=== PATIENT | female | born 1940 | race Caucasian/White ===

== ENCOUNTER 2021-09-26 06:50 | Emergency (ER) | payer MEDICARE ==
[~2021-09-26] VITALS: Ht 157.5 cm; Wt 68.6 kg
[~2021-09-26 06:50] MED LIST: ALPR-624 PO; ASPI-611 PO; ATEN25TA PO; DIAZ5TAB PO; HYDR-4353 PO; MECL-159 PO; ONDA4TAB6 PO; RED600CA2 PO
[2021-09-26 07:46] LABS: EOSINOPHILS # (AUTO) 0.1 X10'3 (0-0.9); EOSINOPHILS % (AUTO) 1.1 % (0-6); HEMOGLOBIN 12.3 g/dl (12.0-16.0); LYMPHOCYTES # (AUTO) 2.2 X10'3 (1.1-4.8); LYMPHOCYTES % (AUTO) 47.9 % (21-51); MEAN CORPUSCULAR HEMOGLOBIN 29.5 PG (27.0-31.0); MEAN CORPUSCULAR HGB CONC 33.4 g/dL (33.0-36.5); MEAN CORPUSCULAR VOLUME 88.5 FL (78-98); MEAN PLATELET VOLUME 10.4 FL (7.4-10.4); MONOCYTES # (AUTO) 0.4 X10'3 (0-0.9); MONOCYTES % (AUTO) 8.8 % (2-12); NEUTROPHILS # (AUTO) 1.9 X10'3 (1.8-7.7); NEUTROPHILS % (AUTO) 41.2 % (42-75); PLATELET COUNT 154 X10'3 (140-440); RED BLOOD COUNT 4.18 X10'6 (4.20-5.60); RED CELL DISTRIBUTION WIDTH 13.2 % (11.5-14.5); WHITE BLOOD COUNT 4.6 X10'3 (4.5-11.0)
[2021-09-26 08:01] LABS: ALANINE AMINOTRANSFERASE 30 U/L (12-78); ALBUMIN 3.8 G/DL (3.4-5.0); ALBUMIN/GLOBULIN RATIO 1.1 (1.1-1.5); ALKALINE PHOSPHATASE 90 IU/L (46-116); ANION GAP 11 (8-16); ASPARTATE AMINO TRANSFERASE 24 U/L (10-37); BILIRUBIN,TOTAL 0.5 MG/DL (0.1-1.0); BLOOD UREA NITROGEN 12 MG/DL (7-18); BUN/CREATININE RATIO 18.2 (6.6-38.0); CALCIUM 8.9 MG/DL (8.5-10.1); CHLORIDE 104 MMOL/L (99-107); CREATININE 0.66 MG/DL (0.40-0.90); GLUCOSE 134 MG/DL (70-104); POTASSIUM 4.1 MMOL/L (3.5-5.1); SODIUM 136 MMOL/L (135-145); TOTAL CARBON DIOXIDE 21.3 MMOL/L (24-32); TOTAL PROTEIN 7.4 G/DL (6.4-8.2); eGFR 86 ML/MIN
[2021-09-26 08:52] VITALS: BP 121/80
== END 2021-09-26 08:54 | disposition home or self-care (01) ==
LOC: ER 06:51
DX: R06.00 Dyspnea, unspecified (principal); R05.9 Cough, unspecified; R06.02 Shortness of breath; R68.2 Dry mouth, unspecified; F41.9 Anxiety disorder, unspecified; G47.00 Insomnia, unspecified; E78.00 Pure hypercholesterolemia, unspecified; I10 Essential (primary) hypertension; M79.7 Fibromyalgia; Z88.5 Allergy status to narcotic agent; Z79.82 Long term (current) use of aspirin; Z79.899 Other long term (current) drug therapy
CPT/HCPCS: 36415; 71045; 80053; 84145; 84484; 85025; 93005; 99285

== ENCOUNTER 2024-02-25 09:47 | Emergency (ER) | payer MEDICARE ==
[~2024-02-25] VITALS: Ht 157.5 cm; Wt 69.5 kg
[~2024-02-25 09:47] MED LIST changes: -MECL-159 PO; +MECL-302 PO
[2024-02-25] MEDS: cloNIDine 0.1 mg tablet PO ONE (10:25)
[2024-02-25] MEDS: normal saline 1000ml 1,000 ML IV ONE ×2 (10:41→12:30)
[2024-02-25 10:46] LABS: BASOPHILS # (AUTO) 0.1 X10'3 (0-0.2); BASOPHILS % (AUTO) 1.5 % (0-1); EOSINOPHILS # (AUTO) 0.1 X10'3 (0-0.9); EOSINOPHILS % (AUTO) 1.5 % (0-6); HEMATOCRIT 40.7 % (35.0-45.0); HEMOGLOBIN 13.3 g/dl (12.0-16.0); LYMPHOCYTES # (AUTO) 3.2 X10'3 (1.1-4.8); LYMPHOCYTES % (AUTO) 52.2 % (21-51); MEAN CORPUSCULAR HEMOGLOBIN 30.1 PG (27.0-31.0); MEAN CORPUSCULAR HGB CONC 32.7 g/dL (33.0-36.5); MEAN CORPUSCULAR VOLUME 91.9 FL (78-98); MEAN PLATELET VOLUME 10.6 FL (7.4-10.4); MONOCYTES # (AUTO) 0.5 X10'3 (0-0.9); MONOCYTES % (AUTO) 8.3 % (2-12); NEUTROPHILS # (AUTO) 2.3 X10'3 (1.8-7.7); NEUTROPHILS % (AUTO) 36.5 % (42-75); PLATELET COUNT 194 X10'3 (140-440); RED BLOOD COUNT 4.43 X10'6 (4.20-5.60); RED CELL DISTRIBUTION WIDTH 13.3 % (11.5-14.5); WHITE BLOOD COUNT 6.2 X10'3 (4.5-11.0)
[2024-02-25 10:57] LABS: ALANINE AMINOTRANSFERASE 30 U/L (12-78); ALBUMIN 3.8 G/DL (3.4-5.0); ALKALINE PHOSPHATASE 92 IU/L (46-116); ANION GAP 9 (8-16); ASPARTATE AMINO TRANSFERASE 23 U/L (10-37); BILIRUBIN,TOTAL 0.6 MG/DL (0.1-1.0); BLOOD UREA NITROGEN 8 MG/DL (7-18); BUN/CREATININE RATIO 9.9 (10.0-20.0); CALCIUM 9.2 MG/DL (8.5-10.1); CHLORIDE 99 MMOL/L (99-107); CREATININE 0.81 MG/DL (0.40-0.90); GLUCOSE 104 MG/DL (70-104); POTASSIUM 4.6 MMOL/L (3.5-5.1); SODIUM 133 MMOL/L (135-145); TOTAL CARBON DIOXIDE 24.9 MMOL/L (24-32); TOTAL PROTEIN 7.8 G/DL (6.4-8.2); eCRCL 40 ML/MIN; eGFR 67 ML/MIN
[2024-02-25 11:25] LABS: MAGNESIUM 2.2 MG/DL (1.5-2.4); PRO BRAIN NATRIURETIC PEPTIDE 468 PG/ML (0-450)
[2024-02-25 12:13] LABS: BILIRUBIN,URINE NEGATIVE (Neg); CLARITY,URINE SLIGHTLY CLOUDY (Clear); COLOR,URINE YELLOW (Yellow); GLUCOSE, URINE NEGATIVE (Neg); KETONES,URINE NEGATIVE (Neg); LEUKOCYTE ESTERASE ,URINE NEGATIVE (Neg); NITRITES, URINE NEGATIVE (Neg); OCCULT BLOOD,URINE NEGATIVE (Neg); PROTEIN,URINE NEGATIVE (Neg); UROBILINOGEN,URINE 0.2 E.U/dL (0.2-1.0)
[2024-02-25 12:21] LABS: UA COLLECTION TYPE NON-SPECIFIED
[2024-02-25 12:22] LABS: BACTERIA,URINE 2+ /HPF (Neg); MUCUS STRANDS FEW /LPF (Neg); RENAL CELLS, URINE FEW /HPF; SQUAMOUS EPITHELIAL CELL,UR FEW /LPF (FEW)
[2024-02-25 13:35] VITALS: BP 168/87; PULSE 62; RESP 16; TEMP 98.4; O2SAT 98
== END 2024-02-25 13:20 | disposition home or self-care (01) ==
LOC: ER 09:47
DX: I10 Essential (primary) hypertension (principal); R42 Dizziness and giddiness; E78.00 Pure hypercholesterolemia, unspecified; F41.9 Anxiety disorder, unspecified; Z88.5 Allergy status to narcotic agent; Z88.4 Allergy status to anesthetic agent; Z79.899 Other long term (current) drug therapy; Z79.82 Long term (current) use of aspirin
CPT/HCPCS: 36415; 80053; 81001; 83735; 83880; 84484; 85025; 87077; 87088; 87186; 93005; 96360; 96361; 99284; J7030

== ENCOUNTER 2024-07-16 11:02 | Emergency (ER) | payer MEDICARE ==
[~2024-07-16] VITALS: Ht 157.5 cm; Wt 68.7 kg
[~2024-07-16 11:02] MED LIST changes: -ATEN25TA PO; +ATOR20TA66 PO; -DIAZ5TAB PO; -HYDR-4353 PO; -MECL-302 PO; +METO25TA6 PO; -ONDA4TAB6 PO; -RED600CA2 PO
[2024-07-16 11:32] VITALS: BP 190/82; PULSE 70; RESP 18; TEMP 98; O2SAT 96
== END 2024-07-16 14:41 | disposition left against medical advice (07) ==
LOC: ER 11:03
DX: R05.9 Cough, unspecified (principal); Z88.5 Allergy status to narcotic agent; Z88.2 Allergy status to sulfonamides; Z53.21 Procedure and treatment not carried out due to patient leaving prior to being seen by health care provider

== ENCOUNTER 2024-07-24 08:13 | Emergency (ER) | payer MEDICARE ==
[~2024-07-24] VITALS: Ht 157.5 cm; Wt 68.2 kg
[2024-07-24] MEDS ORDERED: PROM118S5 PO (09:34)
[2024-07-24] MEDS ORDERED: AZIT250T83 PO (09:34)
[2024-07-24 09:48] VITALS: BP 118/70; PULSE 88; RESP 16; TEMP 98.9; O2SAT 98
== END 2024-07-24 09:50 | disposition home or self-care (01) ==
LOC: ER 08:14
DX: J06.9 Acute upper respiratory infection, unspecified (principal); M79.7 Fibromyalgia; E78.00 Pure hypercholesterolemia, unspecified; I10 Essential (primary) hypertension; F41.9 Anxiety disorder, unspecified; Z88.5 Allergy status to narcotic agent; Z88.2 Allergy status to sulfonamides; Z79.82 Long term (current) use of aspirin
CPT/HCPCS: 71045; 99283

== ENCOUNTER 2024-11-23 13:12 | Outpatient (CLI) | payer MEDICARE ==
--- NOTE | 2024-11-23 14:37 | RADIOLOGY REPORT ---
EXAM: DI HIP UNILATERAL 2 VIEWS CLINICAL INDICATION: LEFT HIP PAIN TECHNIQUE: DI HIP UNILATERAL 2 VIEWS Comparison: None FINDINGS/IMPRESSION: There is no evidence of acute fracture or dislocation. Moderate bilateral hip osteoarthritis The alignment is anatomical. There is no radiopaque foreign body.
== END 2024-11-23 23:59 | disposition home or self-care (01) ==
LOC: RAD 13:12
PROVIDERS: ATTEND Family Medicine
DX: M16.0 Bilateral primary osteoarthritis of hip (principal); M25.552 Pain in left hip
CPT/HCPCS: 73502

== ENCOUNTER 2025-04-08 12:08 | Emergency (ER) | payer MEDICARE ==
[~2025-04-08] VITALS: Ht 157.5 cm; Wt 66.8 kg
[2025-04-08 12:45] LABS: MEAN PLATELET VOLUME 9.3 FL (7.4-10.4); RED CELL DISTRIBUTION WIDTH 13.0 % (11.5-14.5)
[2025-04-08 12:59] LABS: CREATININE 0.85 MG/DL (0.40-0.90); TOTAL CARBON DIOXIDE 26.8 MMOL/L (24-32); eCRCL 38 ML/MIN; eGFR 63 ML/MIN
--- NOTE | 2025-04-08 15:06 | Physician Documentation ---
History of Present Illness Chief Complaint: Abdominal Pain w/vomiting Stated Complaint: DIARRHEA Time Seen by MD: 14:46 OK to notify your PCP?: Yes Primary Medical Doctor: DR. SOLANO Source: patient, family Mode of Arrival: POV Exam Limitations: no limitations HPI 84-year-old female with chief complaint abdominal pain with diarrhea that started three days ago. She states the symptoms came on suddenly with generalized abdominal pain about an hour after eating some fries. She states shortly after the abdominal pain started, about an hour later, she started experiencing diarrhea. She reports the diarrhea is bloody with bright red blood. Today she has only had one episode of diarrhea but yesterday she reports multiple episodes. She has also had nausea over the past three days and vomiting but has not vomited over the past 24 hours. She has never had anything like this before. Abdominal pain is described as cramping in character. Patient is not on blood thinners. History of oophorectomy with partial hysterectomy no other abdominal surgeries. She does report that her symptoms are slightly better today than they were over the preceding two days but the reason she came to the ER today is because this is when her daughter was able to come from [place] to bring her to the ER. No fever, chills, urinary symptoms, chest pain or shortness of breath. Medication Reconciliation Allergies: Coded Allergies: morphine (Unverified Allergy, Severe, 07/24/24) Sulfa (Sulfonamide Antibiotics) (Verified Allergy, Unknown, RASH, 07/24/24) lidocaine (Unverified Adverse Reaction, Mild, shakiness, 07/24/24) Scheduled Alprazolam* (Xanax*), 0.5 TAB PO HS, (Reported) Aspirin (Aspir 81), 1 TAB PO DAILY, (Reported) Atorvastatin Calcium (Atorvastatin Calcium), 1 TAB PO DAILY, (Reported) Metoprolol Tartrate (Metoprolol Tartrate), 1 TAB PO BID, (Reported) Metronidazole* (Flagyl*), 1 TAB PO Q8H Scheduled PRN Ondansetron HCl (Ondansetron HCl), 1 TAB PO TID PRN for nausea/vomiting Past Medical History Past Medical History: Vertigo, High Cholesterol, Hypertension, *GI/HEPATOBILIARY*, Hernia, Fibromyalgia, Anxiety Past Surgical History: noncontributory Alcohol Use: Rarely Lives with: Family Lives In: Home Occupation: retired Review of Systems All Other Systems at this time: Reviewed and Negative Physical Exam Vital Signs: Temperature: 98.3, Source: Oral, Heart Rate: 65, Respiratory Rate: 16, BP: 142/62, Pulse Oximetry: 98, Weight: 66.800 Oxygen Flow Rate: 0 Physical Exam GENERAL: Alert, no acute distress. HEENT: NCAT, EOMI, PERRL, normal oropharynx, moist oral mucosa. NECK: Supple, trachea midline. CARDIAC: Regular rate and rhythm, no murmurs, rubs, or gallops. Equal distal pulses. No lower extremity edema, cap refill less than 2 seconds. RESPIRATORY: Equal breath sounds, clear to auscultation bilaterally, no respiratory distress. GASTROINTESTINAL: Non distended, soft, MILD GENERALIZED TTP, BUT no guarding or rebound. MUSCULOSKELETAL: Normal range of motion, nontender, no swelling. Normal gait. NEUROLOGICAL: Awake, alert, and oriented x 3. SKIN: Warm/dry, no pallor, no rash. PSYCH: Alert and appropriate. Affect congruent with mood. Speech is clear. Good eye contact. Procedures Procedures Exam: CT CT ABDOMEN PELVIS W/ IV CONTRAST History: abdominal pain x 3days with bloody diarrhea Comparison Study: None TECHNIQUE: Multidetector CT of the abdomen and pelvis with IV contrast. Axial, coronal and sagittal multiplanar reformats were obtained from the axial data set by the technologist. Radiation Dose Information: CT Dose: CTDI volume is 12.23 mGy. Dose-length product is 604.42 mGy*cm FINDINGS: Bibasilar atelectasis/scarring. Partially visualized heart is unremarkable. Liver, spleen, gallbladder, pancreas and adrenal glands are unremarkable. Subcentimeter hypodense right renal lesion that is too small to characterize. Kidneys and Ureters are unremarkable. Mild wall thickening of the urinary bladder with mild adjacent fat stranding. Uterus is not well-visualized. Question hysterectomy. 4.6 x 4 cm cystic structure within the right hemipelvis. Tiny hiatal hernia. Mild gastric wall thickening. Small bowel loops unremarkable. Appendix is unremarkable. Descending colon and Sigmoid wall thickening. Descending colon and Sigmoid diverticulosis without significant adjacent fat stranding. Trace amount of free fluid within the pelvis. No evidence of intraperitoneal free air. No evidence of aortic aneurysm or dissection. Moderate atherosclerotic calci fication of the aorta and bilateral iliacs. No significant lymphadenopathy. Tiny fat containing umbilical hernia. No evidence of acute osseous abnormalities. Diffuse demineralization. IMPRESSION: Wall thickening of the urinary bladder with adjacent fat stranding. Correlate for cystitis. Colitis involving the descending colon and sigmoid. Descending colon and sigmoid diverticulosis without diverticulitis. Mild gastric wall thickening which may be due to inadequate distention/mild gastritis. Nonspecific 4.6 cm cystic structure within the right hemipelvis which may represent an ovarian cyst versus peritoneal inclusion cysts. Trace amount of free fluid within the pelvis. Progress Progress Note PATIENT IS VERY CLEAR THAT SHE IS NOT GOING TO STAY IN THE EMERGENCY ROOM. SHE STATES THAT HER DAUGHTER IS GOING TO STAY WITH HER UNTIL WEDNESDAY AND SHE WILL FOLLOW UP WITH HER PRIMARY CARE PROVIDER. WE DISCUSSED HOW HER SODIUM LEVEL NEEDS TO BE CLOSELY MONITORED LOW-SODIUM CAN CAUSE SEIZURES WELL SEVERAL OTHER LIFE-THREATENING PROBLEMS. PATIENT SHOWS GOOD UNDERSTANDING BUT STILL REQUEST DISCHARGE WHICH IS A REASONABLE REQUEST SINCE SHE IS FEELING BETTER AND HAS CLOSE FOLLOW UP. SHE SHOWS GOOD UNDERSTANDING TO RETURN TO THE ER IF DIARRHEA CONTINUES. Results/Orders Reviewed/noted all lab results: Yes Results/Orders Orders - PAULA AVILES Ct Abdomen Pelvis (04/08/25 14:54) Vital Signs 04/08/25 04/08/25 04/08/25 12:14 14:06 14:38 Temp 98.3 Pulse 64 65 Resp 16 16 B/P (MAP) 151/70 142/62 (88) Pulse Ox 97 98 O2 Flow Rate 0 0 Laboratory Tests Test 04/08/25 12:31 White Blood Count 10.4 Red Blood Count 4.33 Hemoglobin 13.3 Hematocrit 38.8 Mean Corpuscular Volume 89.6 Mean Corpuscular Hemoglobin 30.7 Mean Corpuscular Hemoglobin Concent 34.3 Red Cell Distribution Width 13.0 Platelet Count 196 Mean Platelet Volume 9.3 Neutrophils (%) (Auto) 60.5 Lymphocytes (%) (Auto) 31.4 Monocytes (%) (Auto) 6.8 Eosinophils (%) (Auto) 0.6 Basophils (%) (Auto) 0.7 Neutrophils # (Auto) 6.3 Lymphocytes # (Auto) 3.3 Monocytes # (Auto) 0.7 Eosinophils # (Auto) 0.1 Basophils # (Auto) 0.1 CBC Comment Sodium Level 126 L Potassium Level 4.6 Chloride Level 94 L Carbon Dioxide Level 26.8 Anion Gap 5 L Blood Urea Nitrogen 9 Creatinine 0.85 Estimated GFR/1.73 m2 63 BUN/Creatinine Ratio 10.6 Glucose Level 114 H Calcium Level 9.2 Total Bilirubin 0.9 Aspartate Amino Transf (AST/SGOT) 25 Alanine Aminotransferase (ALT/SGPT) 23 Alkaline Phosphatase 81 Total Protein 7.9 Albumin 3.8 Globulin 4.1 Albumin/Globulin Ratio 0.9 L Lipase 20 Chemistry Comments Medical Decision Making Additional information obtaine: N/A Findings N/A Differential Dx:Considerations: AAA, Aortic dissection, Appendicitis, Bowel obstruction, Cholangitis, Cholelithasis, Constipation, Diverticular disease, Esophageal rupture, Esophagitis, Gastritis/PUD, Gastroenteritis, GI hemorrhage, Hernia, Hepatitis, Inflammatory BD, Ischemic bowel, Pancreatitis, Trauma, intraabdominal, Urinary obstruction, Urinary tract infection, Urolithiasis, Other Departure Time of Disposition: 17:36 Disposition: 01 HOME / SELF CARE / HOMELESS Impression: Primary Impression: Abdominal pain Qualified Codes: R10.84 - Generalized abdominal pain Additional Impressions: Bloody diarrhea Hyponatremia Condition: Stable Discharge Instructions: Abdominal Pain (Nonspecific) Additional Instructions: I RECOMMEND HAVING YOUR SODIUM LEVEL RECHECKED IN 1WEEK YOUR SODIUM WAS 127 HERE AND YOUR BASELINE APPEARS TO BE AROUND 133 FOCUS ON HYDRATION I SENT RX FOR FLAGYL TO YOUR PHARMACY TO TREAT YOU FOR SOME OF THE INFECTIOUS CAUSES OF COLITIS Referrals: NO PRIMARY CARE PROVIDER (PCP) Prescriptions Ondansetron HCl (Ondansetron HCl) 4 Mg Tablet 1 TAB PO TID PRN for nausea/vomiting for 4 Days, #12 TAB 0 Refills Prov: PAULA AVILES 04/08/25 Metronidazole* (Flagyl*) 500 Mg Tablet 1 TAB PO Q8H for 10 Days, #30 TAB Prov: PAULA AVILES 04/08/25 Education Educated: Patient Educated regarding: diagnosis, treatment, need for follow up Signature Scribe Signature: X Attestation: PAULA ROCHE Apr 08, 2025 15:06
[2025-04-08] MEDS ORDERED: iohexol 300mg/ml 100ml inj. ONE (15:11)
[2025-04-08 15:26] LABS: LEUKOCYTE ESTERASE ,URINE MODERATE (Neg); NITRITES, URINE NEGATIVE (Neg); OCCULT BLOOD,URINE TRACE-INTACT (Neg)
[2025-04-08 15:30] LABS: UA COLLECTION TYPE CLN CATCH MIDSTREAM
[2025-04-08 15:31] LABS: MUCUS STRANDS FEW /LPF (Neg); SQUAMOUS EPITHELIAL CELL,UR MODERATE /LPF (FEW)
--- NOTE | 2025-04-08 16:24 | RADIOLOGY REPORT ---
Exam: CT CT ABDOMEN PELVIS W/ IV CONTRAST History: abdominal pain x 3days with bloody diarrhea Comparison Study: None TECHNIQUE: Multidetector CT of the abdomen and pelvis with IV contrast. Axial, coronal and sagittal multiplanar reformats were obtained from the axial data set by the technologist. Radiation Dose Information: CT Dose: CTDI volume is 12.23 mGy. Dose-length product is 604.42 mGy*cm FINDINGS: Bibasilar atelectasis/scarring. Partially visualized heart is unremarkable. Liver, spleen, gallbladder, pancreas and adrenal glands are unremarkable. Subcentimeter hypodense right renal lesion that is too small to characterize. Kidneys and Ureters are unremarkable. Mild wall thickening of the urinary bladder with mild adjacent fat stranding. Uterus is not well-visualized. Question hysterectomy. 4.6 x 4 cm cystic structure within the right hemipelvis. Tiny hiatal hernia. Mild gastric wall thickening. Small bowel loops unremarkable. Appendix is unremarkable. Descending colon and Sigmoid wall thickening. Descending colon and Sigmoid diverticulosis without significant adjacent fat stranding. Trace amount of free fluid within the pelvis. No evidence of intraperitoneal free air. No evidence of aortic aneurysm or dissection. Moderate atherosclerotic calcification of the aorta and bilateral iliacs. No significant lymphadenopathy. Tiny fat containing umbilical hernia. No evidence of acute osseous abnormalities. Diffuse demineralization. IMPRESSION: Wall thickening of the urinary bladder with adjacent fat stranding. Correlate for cystitis. Colitis involving the descending colon and sigmoid. Descending colon and sigmoid diverticulosis without diverticulitis. Mild gastric wall thickening which may be due to inadequate distention/mild gastritis. Nonspecific 4.6 cm cystic structure within the right hemipelvis which may represent an ovarian cyst versus peritoneal inclusion cysts. Trace amount of free fluid within the pelvis.
[2025-04-08] MEDS: normal saline 1000ML IV soln IVB ONE (16:46)
[2025-04-08 16:50] VITALS: TEMP 98.2
[2025-04-08 17:12] VITALS: BP 151/76; PULSE 74; RESP 16; O2SAT 97
[2025-04-08] MEDS ORDERED: METR-159 PO (17:36)
[2025-04-08] MEDS ORDERED: ONDA-103 PO (17:36)
[2025-04-08 17:42] LABS: CREATININE 0.79 MG/DL (0.40-0.90); TOTAL CARBON DIOXIDE 25.0 MMOL/L (24-32); eCRCL 40 ML/MIN; eGFR 69 ML/MIN
== END 2025-04-08 18:06 | disposition home or self-care (01) ==
LOC: ER 12:09
DX: R10.84 Generalized abdominal pain (principal); R19.7 Diarrhea, unspecified; E87.1 Hypo-osmolality and hyponatremia; I10 Essential (primary) hypertension; E78.00 Pure hypercholesterolemia, unspecified; M79.7 Fibromyalgia; F41.9 Anxiety disorder, unspecified; Z88.5 Allergy status to narcotic agent; Z88.2 Allergy status to sulfonamides; Z90.721 Acquired absence of ovaries, unilateral; Z79.82 Long term (current) use of aspirin; Z79.899 Other long term (current) drug therapy
CPT/HCPCS: 36415; 74177; 80048; 80053; 81001; 83690; 85025; 87077; 87088; 87186; 96360; 99285; J7030; Q9967